=== PATIENT | female | born 1985 | race Caucasian/White ===

== ENCOUNTER 2017-08-26 11:38 | Emergency (ER) | payer BC ==
[~2017-08-26] VITALS: Ht 170.2 cm; Wt 91.8 kg
[2017-08-26] MEDS ORDERED: MOTRIN600 MG PO (13:18)
[2017-08-26 14:11] VITALS: BP 112/76
== END 2017-08-26 14:11 | disposition home or self-care (01) ==
LOC: EME 11:38
DX: S93.401A Sprain of unspecified ligament of right ankle, initial encounter (principal); X50.1XXA Overexertion from prolonged static or awkward postures, initial encounter; Y93.02 Activity, running; Z88.8 Allergy status to other drugs, medicaments and biological substances
CPT/HCPCS: 73610; 99281; 99283